=== PATIENT | male | born 1955 | race Caucasian/White ===

== ENCOUNTER → 2021-01-22 | Outpatient (CLI) | payer MEDICARE | END | disposition home or self-care (01) | LOC: CARDPV 09:30 | PROVIDERS: ATTEND Specialist | DX: G40.909 Epilepsy, unspecified, not intractable, without status epilepticus (principal) | CPT/HCPCS: 95816 ==

== ENCOUNTER 2025-01-19 20:39 | Emergency (ER) | payer MEDICARE, OTHER ==
[~2025-01-19] VITALS: Ht 170.2 cm; Wt 91.0 kg
[2025-01-19 20:42] VITALS: TEMP 98.4
[2025-01-19 21:18] LABS: BASOPHILS % (AUTO) 0.7 % (0.0-2.0); EOSINOPHILS % (AUTO) 1.3 % (1.0-6.0); HEMATOCRIT 45.2 % (41-53); HEMOGLOBIN 14.8 g/dL (13.5-17.5); LYMPHOCYTES # (AUTO) 2.9 K/uL (1.0-4.8); LYMPHOCYTES % (AUTO) 25.4 % (22.0-44.0); MEAN CORPUSCULAR HGB CONC 32.6 G/dL (31.0-37.0); MEAN CORPUSCULAR VOLUME 89 fL (80-100); MONOCYTES # (AUTO) 0.8 K/uL (0.1-1.0); MONOCYTES % (AUTO) 7.1 % (2.0-9.0); NEUTROPHILS # (AUTO) 7.3 K/uL (1.8-7.7); NEUTROPHILS % (AUTO) 65.5 % (40.0-70.0); PLATELET COUNT (AUTO) 393 K/uL (150-450); RED BLOOD CELL COUNT(AUTO) 5.09 MIL/uL (4.50-5.90); RED CELL DISTRIBUTION WIDTH 13.3 % (11.5-14.5); WHITE BLOOD COUNT (AUTO) 11.2 K/uL (4.5-11.0)
[2025-01-19 21:28] LABS: ANION GAP 13 mmol/L (8-16); CALCIUM, TOTAL 9.5 mg/dL (8.8-10.5); CARBON DIOXIDE 21 mmol/L (22-29); CHLORIDE 102 mmol/L (98-107); CREATININE 1.06 mg/dL (0.60-1.30); GLOMERULAR FILTR. RATE CALC > 60 mL/min (>60); GLUCOSE,RANDOM 188 mg/dL (70-110); POTASSIUM 3.6 mmol/L (3.5-5.1); SODIUM SERUM 136 mmol/L (136-145); UREA NITROGEN, BLOOD 15 mg/dL (7-18)
[2025-01-19] MEDS: LORazepam 2 MG/ML VIAL IVP ONE (21:28)
[2025-01-19] MEDS: LevETIRAcetam 1,000 MG in DEXTROSE 5%-WATER 100 ML IV ONE (21:28)
[2025-01-19 21:38] LABS: TROPONIN I-HIGH SENSITIVITY 12 ng/L (<76)
[2025-01-19 21:41] LABS: ALCOHOL, BLOOD (SERUM) < 3 mg/dL (0-10)
[2025-01-19] MEDS: KETOROLAC TROMETHAMINE 30 MG/ML VIAL IVP ONE (22:37)
[2025-01-19] MEDS: ACETAMINOPHEN 325 MG TABLET PO ONE (22:38)
[2025-01-19 23:00] VITALS: BP 128/71; PULSE 92; RESP 21; O2SAT 94
== END 2025-01-20 00:28 | disposition home or self-care (01) ==
LOC: EMS 20:40
DX: S03.01XA Dislocation of jaw, right side, initial encounter (principal); G40.909 Epilepsy, unspecified, not intractable, without status epilepticus; R51.9 Headache, unspecified; E11.9 Type 2 diabetes mellitus without complications; X58.XXXA Exposure to other specified factors, initial encounter; Y93.89 Activity, other specified; Y92.89 Other specified places as the place of occurrence of the external cause; Y99.8 Other external cause status
CPT/HCPCS: 99285; 21480; 96365; 70486; 96375; 80048; 84484; 85025; 93005; J0712; J1885; G0480; J2060; J7060